=== PATIENT | male | born 2000 | race Caucasian/White ===

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

== ENCOUNTER 2021-03-05 17:49 | Emergency (ER) | payer MEDICAID ==
[~2021-03-05] VITALS: Ht 162.6 cm; Wt 55.5 kg
[2021-03-05 18:06] VITALS: BP 148/80
== END 2021-03-05 20:28 | disposition home or self-care (01) ==
LOC: ER 17:49
DX: M79.644 Pain in right finger(s) (principal); J45.909 Unspecified asthma, uncomplicated; Z79.2 Long term (current) use of antibiotics; Z79.899 Other long term (current) drug therapy
CPT/HCPCS: 29130; 73140; 99283

== ENCOUNTER 2021-05-13 13:37 | Emergency (ER) | payer MEDICARE, MEDICAID ==
[~2021-05-13] VITALS: Ht 165.1 cm; Wt 52.0 kg
[2021-05-13 14:06] VITALS: BP 121/65
[2021-05-13] MEDS ORDERED: HYDR-3965 PO (15:11)
== END 2021-05-13 15:49 | disposition home or self-care (01) ==
LOC: ER 13:38
DX: S67.21XA Crushing injury of right hand, initial encounter (principal); J45.909 Unspecified asthma, uncomplicated; Z79.2 Long term (current) use of antibiotics; Z79.899 Other long term (current) drug therapy; W28.XXXA Contact with powered lawn mower, initial encounter; Y93.89 Activity, other specified; Y92.89 Other specified places as the place of occurrence of the external cause
CPT/HCPCS: 29125; 73130; 99283

== ENCOUNTER 2022-08-09 23:40 | Emergency (ER) | payer MEDICARE, MEDICAID ==
[~2022-08-09] VITALS: Ht 165.1 cm; Wt 59.1 kg
[~2022-08-09 23:40] MED LIST changes: +ALBU6.7H14 INH; -ALBU6.7H9 INH
[2022-08-10 02:15] VITALS: BP 98/58
== END 2022-08-10 02:17 | disposition home or self-care (01) ==
LOC: ER 23:41
DX: R06.02 Shortness of breath (principal); Z20.822 Contact with and (suspected) exposure to COVID-19; J45.909 Unspecified asthma, uncomplicated; Z79.2 Long term (current) use of antibiotics; Z79.899 Other long term (current) drug therapy
CPT/HCPCS: 71045; 87502; 87503; 87635; 93005; 99285; C9803

== ENCOUNTER 2022-09-26 14:07 | Emergency (ER) | payer MEDICARE, MEDICAID ==
[~2022-09-26] VITALS: Ht 165.1 cm; Wt 59.1 kg
[2022-09-26 14:22] VITALS: BP 110/71
[2022-09-26] MEDS ORDERED: azithromycin 250mg tablet PO ONE (14:50)
[2022-09-26] MEDS ORDERED: AZIT-83 PO (14:51)
== END 2022-09-26 15:10 | disposition home or self-care (01) ==
LOC: ER 14:07
DX: J20.9 Acute bronchitis, unspecified (principal); J45.909 Unspecified asthma, uncomplicated
CPT/HCPCS: 99283

== ENCOUNTER 2023-09-27 19:49 | Emergency (ER) | payer MEDICARE, MEDICAID ==
[~2023-09-27] VITALS: Ht 165.1 cm; Wt 56.4 kg
[2023-09-28] MEDS ORDERED: SULF1TAB49 PO (05:52)
[2023-09-28] MEDS ORDERED: CEPH-585 PO (05:52)
[2023-09-28] MEDS ORDERED: cephalexin 250mg capsule PO ONE (05:55)
[2023-09-28] MEDS ORDERED: sulfamethoxazole/trimethoprim DS (800/160mg) tablet PO ONE (05:55)
[2023-09-28 06:16] VITALS: BP 142/65; PULSE 74; RESP 16; TEMP 98.6; O2SAT 99
== END 2023-09-28 06:18 | disposition home or self-care (01) ==
LOC: ER 19:49
DX: L03.113 Cellulitis of right upper limb (principal)
CPT/HCPCS: 73090; 73110; 99284; A6449

== ENCOUNTER → 2025-06-11 | Emergency (ER) | payer MEDICARE, MEDICAID ==
[~2025-06-11] VITALS: Ht 162.6 cm; Wt 59.1 kg
[2025-06-11 16:01] VITALS: BP 121/71; PULSE 98; RESP 18; O2SAT 98
--- NOTE | 2025-06-11 16:47 | RADIOLOGY REPORT ---
CLINICAL INDICATION: RT.KNEE PAIN TECHNIQUE: 4 radiographic views of the right knee were obtained. Comparison: None FINDINGS/IMPRESSION: There is no evidence of acute fracture or dislocation. The visualized joint space is well maintained. The alignment is anatomical. There is no radiopaque foreign body.
--- NOTE | 2025-06-11 17:41 | Physician Documentation ---
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 Patient states he is ambulatory and able to bear weight but it is painful. Patient admits to swelling of his right knee. He has no other concern or complaint at this time. Tetanus witin 5 years: No Medication Reconciliation Allergies: Coded Allergies: No Known Allergies (Unverified , 06/11/25) Scheduled Albuterol Sulfate (Proventil Hfa), 2 PUFFS INH Q6H Penicillin V Potassium* (Penicillin VK*), 250 MG PO BID Past Medical History Past Medical History: Asthma Past Surgical History: no surgical history Alcohol Use: None Drug Use: none Lives with: Mother Lives In: Home Occupation: student Review of Systems Constitutional: Denies: chills, fever, weakness Eyes: Denies: pain, blurred vision ENT: Denies: ear pain, nose pain, throat pain, mouth pain Respiratory: Denies: cough, shortness of breath Cardiovascular: Denies: chest pain, palpitations Gastrointestinal: Denies: abdominal pain, nausea, vomiting Genitourinary: Denies: burning, dysuria Male Genitalia: Denies: penile discharge, testicular pain Neurological: Denies: headache, dizziness Musculoskeletal: Denies: pain, swelling Integumentary: Denies: rash, lesions Allergic/Immunologic: Denies: hives, itching Hematologic/Lymphatic: Denies: no symptoms reported Psychiatric: Denies: depression, anxiety Physical Exam Vital Signs: Temperature: 98.6, Source: Temporal, Heart Rate: 98, Respiratory Rate: 18, BP: 121/71, Pulse Oximetry: 98, Weight: 59.090 Oxygen Flow Rate: 0 Physical Exam General: Awake and Alert, no acute distress. HEENT: Conjunctiva pink, Sclera clear, Mucus Membranes moist. Neck: Supple without masses and tenderness. Resp: Unlabored. Lungs clear to auscultation bilaterally. Heart: Regular Rate and rhythm, normal S1 and S2 without murmur, rub or gallop. Musculoskeletal: Patient on exam does have swelling of the lateral aspect of the right knee with erythema. Patient has significant tenderness of the lateral joint line of the right knee. Anya's test is negative, MCL and LCL ligaments appear intact on exam but in his painful stressing through the LCL. Patient is neurovascularly intact distally. Motor function and strength are intact. Range of motion is decreased of right knee. Extremities: No cyanosis,clubbing or edema. Skin: Warm and Dry. Progress Results/Orders Results/Orders Orders - JODIMELVIN Thania PAC Ortho Orders (06/11/25 17:41) Vital Signs 06/11/25 16:01 Temp 98.6 Pulse 98 Resp 18 B/P (MAP) 121/71 Pulse Ox 98 O2 Flow Rate 0 EKG/XRAY/CT/US/VASC/MRI Bone/Soft Tissue X-Ray (Ext.) : Additional Comment X-ray of right knee interpreted by myself today shows no sign of acute fracture, no dislocation, bones in anatomic alignment, no osteolytic or blastic lesions. DIAGNOSTIC RADIOLOGY Patient: MELVIN WHELAN [facility] Record: [id number] 2000, Age: 25 Sex: Male Location: ER Patient Status: [facility] ER Service Date/Time: 06/11/25 1604 Ordering Physician: FORREST ECHAVARRIA MD Exam: KNEE, COMP 4 VW MIN CLINICAL INDICATION: RT.KNEE PAIN TECHNIQUE: 4 radiographic views of the right knee were obtained. Comparison: None FINDINGS/IMPRESSION: There is no evidence of acute fracture or dislocation. The visualized joint space is well maintained. The alignment is anatomical. There is no radiopaque foreign body. 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 Patient states he is ambulatory and able to bear weight but it is painful. Patient admits to swelling of his right knee. He has no other concern or complaint at this time. Patient will be given knee immobilizer and crutches and patient will follow up with primary care in 2-5 days if no better as needed sooner for referral to it operations specialist. Patient will take Tylenol ibuprofen as needed for sy mptomatic relief we will be placed on light duty for two weeks. Patient will return to ED with any worsening, concerning or changing symptoms. Patient will wear a knee immobilizer for one week and then will be re-evaluated by ortho or primary care provider. Departure Disposition: HOME / SELF CARE / HOMELESS Impression: Primary Impression: Knee pain Qualified Codes: M25.561 - Pain in right knee Additional Impression: Effusion of knee Qualified Codes: M25.461 - Effusion, right knee Condition: Improved Discharge Instructions: Acute Knee Pain, Adult Additional Instructions: Patient will be given knee immobilizer and crutches and patient will follow up with primary care in 2-5 days if no better as needed sooner for referral to it operations specialist. Patient will take Tylenol ibuprofen as needed for symptomatic relief we will be placed on light duty for two weeks. Patient will return to ED with any worsening, concerning or changing symptoms. Patient will wear a knee immobilizer for one week and then will be re-evaluated by ortho or primary care provider. Rest, ice, compress, elevate 20 minutes on and 20 minutes off for three days. Departure Forms: Excuse form Work or School May Return but still avoid physical Activity from now until: Jun 12, 2025 Referrals: NO PRIMARY CARE PROVIDER (PCP) Signature Scribe Signature: No scribe Attestation: No scribe MELVIN ZAPATA Jun 11, 2025 17:41
[2025-06-11 18:03] VITALS: TEMP 98.6
== END | disposition home or self-care (01) ==
LOC: ER 15:50
DX: M25.461 Effusion, right knee (principal); M25.561 Pain in right knee; J45.909 Unspecified asthma, uncomplicated; Z79.899 Other long term (current) drug therapy
CPT/HCPCS: 29505; 73564; 99283; A6449

== ENCOUNTER 2025-07-05 15:17 | Emergency (ER) | payer MEDICARE, MEDICAID ==
[~2025-07-05] VITALS: Ht 160 cm; Wt 57.7 kg
[2025-07-05 15:50] LABS: LEUKOCYTE ESTERASE ,URINE NEGATIVE (Neg); NITRITES, URINE NEGATIVE (Neg); OCCULT BLOOD,URINE NEGATIVE (Neg)
[2025-07-05 15:52] LABS: MEAN PLATELET VOLUME 9.6 FL (7.4-10.4); RED CELL DISTRIBUTION WIDTH 13.0 % (11.5-14.5)
[2025-07-05 15:56] LABS: UA COLLECTION TYPE CLN CATCH MIDSTREAM
[2025-07-05 16:06] LABS: CREATININE 0.88 MG/DL (0.60-1.10); TOTAL CARBON DIOXIDE 24.8 MMOL/L (24-32); eCRCL 104 ML/MIN; eGFR > 90 ML/MIN
--- NOTE | 2025-07-05 16:40 | Physician Documentation ---
History of Present Illness Chief Complaint: Abdominal Pain Stated Complaint: R LOWER ABD PAIN Time Seen by MD: 16:31 Primary Medical Doctor: rAnol MELTON This is a 25-year-old male who is only stated medical history is that of constipation, for which he takes Linzess and MiraLax. He reports a normal non bloody non black stool within the last 24 hours. He reports nausea but no vomiting. He has had no chills or fever. He notes onset of right lower quadrant abdominal pain today. No recent trauma or injury. Rates the pain 07/01. Medication Reconciliation Allergies: Coded Allergies: No Known Allergies (Unverified , 07/05/25) Scheduled Albuterol Sulfate (Proventil Hfa), 2 PUFFS INH Q6H Penicillin V Potassium* (Penicillin VK*), 250 MG PO BID Scheduled PRN Acetaminophen (Acetaminophen), 2 TAB PO Q6H PRN for pain or fever ONDANSETRON ODT 4mg tablet (Ondansetron Odt), 1 TAB PO Q6H PRN PRN for nausea/vomiting Past Medical History Past Medical History: Asthma Past Surgical History: no surgical history Alcohol Use: None Drug Use: none Lives with: Mother Lives In: Home Occupation: student Review of Systems ROS As stated above in the HPI, otherwise all systems are reviewed and negative. Physical Exam Vital Signs: Temperature: 99.0, Source: Temporal, Heart Rate: 98, Respiratory Rate: 18, BP: 129/57, Pulse Oximetry: 97, Weight: 57.700 Oxygen Flow Rate: 0 Physical Exam General: Alert, no apparent distress. Neck: Full range of motion. Respiratory: Lungs clear, no respiratory distress. Chest: No accessory muscle use. Cardiovascular: Regular rate and rhythm, no murmurs. Gastrointestinal: Soft, TTP with guarding RLQ, nondistended. Bowels sounds present. Extremities: Normal range of motion, no deformity. Neurologic: Oriented x4. Psychiatric: Normal mood and affect. Skin: Normal color, warm and dry. No edema, no ecchymosis. Progress Results/Orders Results/Orders Vital Signs 07/05/25 07/05/25 15:20 16:34 Temp 99.0 Pulse 102 98 Resp 19 18 B/P (MAP) 126/84 129/57 (81) Pulse Ox 98 97 O2 Flow Rate 0 Laboratory Tests Test 07/05/25 15:26 07/05/25 15:39 Urine Specimen Description Cln catch midstream Urine Color Yellow Urine Clarity Clear Urine pH 6.0 Urine Specific Villanueva 1.020 Urine Protein Negative Urine Glucose (UA) Negative Urine Ketones 15 H Urine Occult Blood Negative Urine Nitrite Negative Urine Bilirubin Small Urine Urobilinogen 1.0 Urine Leukocyte Esterase Negative Urine Culture Indicated Not ind Volume Urine Centrifuged 10 ml Urine Comment White Blood Count 8.0 Red Blood Count 5.81 Hemoglobin 17.6 Hematocrit 51.8 Mean Corpuscular Volume 89.1 Mean Corpuscular Hemoglobin 30.3 Mean Corpuscular Hemoglobin Concent 34.0 Red Cell Distribution Width 13.0 Platelet Count 266 Mean Platelet Volume 9.6 Neutrophils (%) (Auto) 70.8 Lymphocytes (%) (Auto) 23.2 Monocytes (%) (Auto) 5.1 Eosinophils (%) (Auto) 0.4 Basophils (%) (Auto) 0.5 Neutrophils # (Auto) 5.6 Lymphocytes # (Auto) 1.8 Monocytes # (Auto) 0.4 Eosinophils # (Auto) 0.0 Basophils # (Auto) 0.0 CBC Comment Sodium Level 141 Potassium Level 3.7 Chloride Level 103 Carbon Dioxide Level 24.8 Anion Gap 13 Blood Urea Nitrogen 10 Creatinine 0.88 Estimated GFR/1.73 m2 > 90 BUN/Creatinine Ratio 11.4 Glucose Level 85 Calcium Level 9.4 Total Bilirubin 3.5 H Aspartate Amino Transf (AST/SGOT) 21 Alanine Aminotransferase (ALT/SGPT) 34 Alkaline Phosphatase 61 Total Protein 7.5 Albumin 4.6 Globulin 2.9 Albumin/Globulin Ratio 1.6 H Lipase 29 Chemistry Comments EKG/XRAY/CT/US/VASC/MRI Abdominal X-Ray : Additional Comment [address] [address] DIAGNOSTIC RADIOLOGY Patient: MELVIN WHELAN Medical Record: [id number] [facility] : 2000, Age: 25 Sex: Male Location: ER Patient Status: [facility] ER Service Date/Time: 07/05/25/ 1644 Ordering Physician: ISRRAEL ROSARIO NP Exam: ABDOMEN,SINGLE VIEW(KUB) ABDOMEN, (KUB) ONE VIEW REASON FOR EXAM: RLQ abd pain COMPARISON: None TECHNIQUE: A single view of the abdomen is obtained. FINDINGS: The bowel gas pattern is nonobstructive. The colonic stool burden is small. There is focal, prominent gaseous of a hollow viscus under the left hemidiaphragm, possibly the stomach. There is no significant distention of the large or small bowel. There is no supine evidence of pneumoperitoneum. No acute osseous abnormality is identified. IMPRESSION: Distended hollow viscus under the left hemidiaphragm, likely the stomach. No other gross abnormality in the abdomen. Electronically Signed by:JARRELL NOVOA MD Date & Time: 07/05/251749 Dictated by: JARRELL NOVOA MD Dictation date and time: 07/05/251654 Primary Care Provider: NO PRIMARY CARE PROVIDER cc: ISRRAEL ROSARIO NP ~ Medical Decision Making Additional Comments 25-year-old male with a medical history of constipation presents today due to concerns for onset of right lower quadrant abdominal pain that began today. He has had no chills or fever, no vomiting but does endorse nausea. He denies any diagnosed medical problems besides the constipation. He denies any recent injury to the abdomen. His exam does reveal tenderness to the right lower quadrant with guarding but no rebound. His labs were completely normal including no evidence of leukocytosis or organ dysfunction. Urinalysis is free of signs of infection but does show evidence of mild dehydration. Departure Time of Disposition: 17:50 Disposition: 01 HOME / SELF CARE / HOMELESS Impression: Primary Impression: Abdominal pain Qualified Codes: R10.31 - Right lower quadrant pain Additional Impression: Constipation Qualified Codes: K59.00 - Constipation, unspecified Condition: Stable Discharge Instructions: Constipation, Adult Additional Instructions: Your labs were all normal. No elevated white blood cell count to indicate infection. No abnormal kidney or liver function testing. Your urine showed evidence of mild dehydration but no signs of infection. Xray showed mild constipation. Continue your linzess and miralax. Stay well hydrated. Take the nausea medication as needed. RETURN IF WORSE: Severe pain, fever over 101, shaking chills with nausea and vomiting, or any other concerns that you are getting worse. It is very unlikely but possible that you have very early appendicitis that is just not yet showing on your labs. Referrals: NO PRIMARY CARE PROVIDER (PCP) Prescriptions Acetaminophen (Acetaminophen) 325 Mg Tablet 2 TAB PO Q6H PRN for pain or fever for 30 Days, #30 TAB Prov: ISRRAEL ROSARIO NP 07/05/25 ONDANSETRON ODT 4mg tablet (ONDANSETRON ODT) 4 Mg Tab.rapdis 1 TAB PO Q6H PRN PRN for nausea/vomiting for 4 Days, #16 TAB 0 Refills Prov: ISRRAEL ROSARIO NP 07/05/25 Education Educated: Patient, Family Educated regarding: diagnosis, treatment, prognosis, need for follow up Signature Scribe Signature: x Attestation: The note accurately reflects work and decisions made by me.Isrrael Daigle NP 07/05/25 16:43 ISRRAEL ROSARIO NP Jul 05, 2025 16:40
[2025-07-05] MEDS: ondansetron 4mg rapidly disintigrating tab PO ONE (16:53)
[2025-07-05] MEDS: ketorolac trometh 30MG/ML vial 30 MG/ML VIAL IM ONE (16:54)
--- NOTE | 2025-07-05 17:52 | RADIOLOGY REPORT ---
ABDOMEN, (KUB) ONE VIEW REASON FOR EXAM: RLQ abd pain COMPARISON: None TECHNIQUE: A single view of the abdomen is obtained. FINDINGS: The bowel gas pattern is nonobstructive. The colonic stool burden is small. There is foca l, prominent gaseous of a hollow viscus under the left hemidiaphragm, possibly the stomach. There is no significant distention of the large or small bowel. There is no supine evidence of pneumoperitone um. No acute osseous abnormality is identified. IMPRESSION: Distended hollow viscus under the left hemidiaphragm, likely the stomach. No other gross abnormality in the abdomen.
[2025-07-05] MEDS ORDERED: ONDA-243 PO (17:54)
[2025-07-05] MEDS ORDERED: POLY119P2 PO (17:54)
[2025-07-05] MEDS ORDERED: [UNRECOGNIZED DRUG - CODE] PO (17:54)
[2025-07-05 17:59] VITALS: BP 107/61; PULSE 90; RESP 16; TEMP 98.5; O2SAT 98
== END 2025-07-05 18:00 | disposition home or self-care (01) ==
LOC: ER 15:17
DX: K59.00 Constipation, unspecified (principal); J45.909 Unspecified asthma, uncomplicated
CPT/HCPCS: 36415; 74018; 80053; 81003; 83690; 85025; 96372; 99284; J1885

== ENCOUNTER 2025-11-18 10:14 | Emergency (ER) | payer MEDICARE, MEDICAID ==
[~2025-11-18] VITALS: Ht 157.5 cm; Wt 55.5 kg
[~2025-11-18 10:14] MED LIST changes: +ONDA-243 PO
[2025-11-18] MEDS ORDERED: ibuprofen tablet 400 MG TABLET PO ONE (10:40)
--- NOTE | 2025-11-18 10:48 | Physician Documentation ---
History of Present Illness ~ Chief Complaint: Flu Symptoms Stated Complaint: HIGH FEVER Time Seen by MD: 11:45 Primary Medical Doctor: [facility] Source: patient Mode of Arrival: POV Exam Limitations: no limitations HPI 25-year-old male was recently at [facility] and was positive for influenza a given antivirals but continued to have worsening shortness of breath and coughing. Fever of 102 took Tylenol 2 hours ago fever of 101 in triage Medication Reconciliation Allergies: Coded Allergies: No Known Allergies (Unverified , 07/05/25) Scheduled Albuterol Sulfate (Proventil Hfa), 2 PUFFS INH Q6H Penicillin V Potassium* (Penicillin VK*), 250 MG PO BID Scheduled PRN ONDANSETRON ODT 4mg tablet (Ondansetron Odt), 1 TAB PO Q6H PRN PRN for nausea/vomiting Past Medical History Past Medical History: Asthma Past Surgical History: no surgical history Alcohol Use: None Drug Use: none Lives with: Mother Lives In: Home Occupation: student Review of Systems All Other Systems at this time: Reviewed and Negative Respiratory: Reports: see HPI Physical Exam Vital Signs: RN Vital Signs have been reviewed: Yes, Temperature: 101.9, Source: Oral, Heart Rate: 116, Respiratory Rate: 20, BP: 103/78, Pulse Oximetry: 95, Weight: 55.500 Oxygen Flow Rate: 0 Physical Exam General: Alert, acutely ill-appearing HEENT: PERRL, EOMI, no injection, moist mucous membranes. Neck: Full range of motion. Respiratory: Coarse rhonchi posteriorly speaking in full sentences productive cough Chest: No accessory muscle use. Cardiovascular: Regular rate and rhythm, no murmurs. Extremities: Normal range of motion, no deformity. Neurologic: Oriented x4. Psychiatric: Normal mood and affect. Skin: Normal color, warm and dry. No edema, no ecchymosis. Progress Results/Orders Results/Orders Orders - SHANON RODRIGUES BRUSHER WARP Chest,Single View (11/18/25 10:44) Monitor (11/18/25 10:37) Svn Treatment (11/18/25 11:58) Completed Orders - SHANON RODRIGUES BRUSHER WARP Cbc/Diff (11/18/25 10:37) Chest,Single View (11/18/25 10:44) BMP (11/18/25 10:37) Ibuprofen Tablet (Motrin Tablet) (11/18/25 10:45) Ondansetron Disint. Tablet (Zofran Odt T (11/18/25 11:45) Famotidine Tablet (Pepcid Tablet) (11/18/25 11:45) Albuterol 2.5mg/3ml Nebule (Proventil 2. (11/18/25 12:00) Normal Saline 1000ml (0.9% Sodium Chlori (11/18/25 12:00) Acetaminophen 325mg Tablet (Tylenol Tabl (11/18/25 12:50) Medications Received in ER Medications (Trade) Dose Ordered Sig/Henrik Route PRN Reason Start Time Stop Time Status Last Admin Dose Admin (Motrin tablet) 600 mg ONCE ONCE PO 11/18/25 10:45 11/18/25 10:46 DC 11/18/25 11:48 600 MG (Zofran ODT tablet) 4 mg ONCE ONCE PO 11/18/25 11:45 11/18/25 11:46 DC 11/18/25 11:48 4 MG (Pepcid tablet) 20 mg ONCE ONCE PO 11/18/25 11:45 11/18/25 11:46 DC 11/18/25 11:48 20 MG (Proventil 2.5 MG/3ML nebule) 2.5 mg ONCE ONCE NEB 11/18/25 12:00 11/18/25 12:01 DC 11/18/25 12:15 2.5 MG Vital Signs 11/18/25 11/18/25 11/18/25 11/18/25 10:33 11:53 12:06 12:10 Temp 101.9 101.1 Pulse 116 96 110 Resp 20 18 18 B/P (MAP) 103/78 113/79 (90) 129/80 (96) Pulse Ox 95 97 97 O2 Flow Rate 0 0 0 11/18/25 11/18/25 11/18/25 12:16 12:24 12:48 Temp 100.1 Pulse 108 108 103 Resp 20 20 18 B/P (MAP) 118/98 (105) Pulse Ox 98 99 97 O2 Delivery Room Air* Room Air* O2 Flow Rate 0 0 0 FiO2 21 21 Laboratory Tests Test 11/18/25 11:35 White Blood Count 8.2 Red Blood Count 5.52 Hemoglobin 17.0 Hematocrit 50.0 Mean Corpuscular Volume 90.6 Mean Corpuscular Hemoglobin 30.8 Mean Corpuscular Hemoglobin Concent 34.0 Red Cell Distribution Width 13.2 Platelet Count 156 Mean Platelet Volume 10.4 Neutrophils (%) (Auto) 76.2 H Lymphocytes (%) (Auto) 12.8 L Monocytes (%) (Auto) 10.8 Eosinophils (%) (Auto) 0 Basophils (%) (Auto) 0.2 Neutrophils # (Auto) 6.2 Lymphocytes # (Auto) 1.0 L Monocytes # (Auto) 0.9 Eosinophils # (Auto) 0.0 Basophils # (Auto) 0.0 CBC Comment Sodium Level 141 Potassium Level 4.3 Chloride Level 103 Carbon Dioxide Level 28.7 Anion Gap 9 Blood Urea Nitrogen 11 Creatinine 1.14 H Estimated GFR/1.73 m2 79 BUN/Creatinine Ratio 9.6 L Glucose Level 92 Calcium Level 9.2 Albumin 4.2 Chemistry Comments Medical Decision Making Additional information obtaine: old records Findings Patient has a positive for influenza a yesterday. Patient's vital signs eknneth cates some dehydration versus difficulty breathing. Patient is coughing lots of wheezing and rhonchi. X-ray to evaluate for any infective processes which was negative. We will give a L of normal saline, Zofran and Pepcid as well. Breathing treatment. We will reassess. Patient already has medications including Tamiflu. Supportive care warranted at this time. Oxygen saturation reassuring patient able to tolerate fluid. Vital signs improving. Supportive care with influenza follow up primary care Heart Score: 0 Differential Dx:Considerations: Include: pneumonia, other Departure Time of Disposition: 12:55 Disposition: 01 HOME / SELF CARE / HOMELESS Impression: Primary Impression: Influenza Condition: Stable Discharge Instructions: Influenza, Adult Additional Instructions: Taking antiviral using Zofran as needed for nausea vomiting, maintain hydration follow up with primary care in 3-5 days Referrals: NO PRIMARY CARE PROVIDER (PCP) Prescriptions Famotidine (Pepcid AC) 20 Mg Tablet 1 TAB PO QDAY PRN PRN for heartburn for 30 Days, #30 TAB 0 Refills Prov: SHANON RODRIGUES NP 11/18/25 Guaifenesin/Codeine Phos (Guaifenesin-Codeine Syrup) 10 Mg-100 Mg/5 Ml Liquid 5 ML PO Q6H PRN PRN for cough and congestion for 6 Days, #120 ML Prov: SHANON RODRIGUES NP 11/18/25 ONDANSETRON ODT 4mg tablet (ONDANSETRON ODT) 4 Mg Tab.rapdis 1 TABLET PO Q6H PRN for nausea/vomiting, #16 TABLET Prov: SHANON RODRIGUES NP 11/18/25 Education Educated: Patient Educated regarding: diagnosis, treatment, need for follow up Signature Scribe Signature: No Scribe Attestation: The note accurately reflects work and decisions made by me.Shanon KRAMER 11/18/25 12:00 SHANON RODRIGUES NP Nov 18, 2025 10:48
--- NOTE | 2025-11-18 11:14 | RADIOLOGY REPORT ---
DI CHEST,SINGLE VIEW, HISTORY: SOB COMPARISON: CHEST,SINGLE VIEW on DOS: 08/10/22, CHEST,SINGLE VIEW on DOS: 05/14/20 CHEST,SINGLE VIEW on DOS: 08/10/22, CHEST,SINGLE VIEW on DOS: 05/14/20 TECHNICAL DATA: 1 view of the chest was obtained. FINDINGS: Lines and tubes: None Cardiomediastinal silhouette: normal Pulmonary vasculature: normal Lung expansion: normal Lung airspace: normal Lung interstitium: normal Pleura: normal Pneumothorax: no Bones: Unremarkable Other: Prominent bowel gas under the left and central diaphragm. IMPRESSION: No acute intrathoracic abnormality. Prominent bowel gas under the left and central diaphragm.
[2025-11-18] MEDS: ondansetron 4mg rapidly disintigrating tab PO ONE (11:48)
[2025-11-18] MEDS: normal saline 1000ML IV soln IVB ONE (12:00)
[2025-11-18 12:08] LABS: CREATININE 1.14 MG/DL (0.60-1.10); TOTAL CARBON DIOXIDE 28.7 MMOL/L (24-32); eCRCL 77 ML/MIN; eGFR 79 ML/MIN
[2025-11-18 12:09] LABS: MEAN PLATELET VOLUME 10.4 FL (7.4-10.4); RED CELL DISTRIBUTION WIDTH 13.2 % (11.5-14.5)
[2025-11-18] MEDS: albuterol 2.5 MG/3 ML nebule NEB ONE (12:15)
[2025-11-18 12:16] VITALS: PULSE 108; RESP 20; O2SAT 98
[2025-11-18 12:24] VITALS: PULSE 108; RESP 20; O2SAT 99
[2025-11-18] MEDS ORDERED: FAMO20TA44 PO (12:56)
[2025-11-18] MEDS ORDERED: GUAI118S13 PO (12:56)
[2025-11-18] MEDS ORDERED: ONDA-243 PO (12:56)
[2025-11-18 13:31] VITALS: BP 112/67; PULSE 90; RESP 17; TEMP 100.1; O2SAT 98
== END 2025-11-18 13:32 | disposition home or self-care (01) ==
LOC: ER 10:14
DX: J11.1 Influenza due to unidentified influenza virus with other respiratory manifestations (principal); J45.909 Unspecified asthma, uncomplicated; Z79.899 Other long term (current) drug therapy
CPT/HCPCS: 36415; 71045; 80048; 85025; 94640; 94760; 99285